=== PATIENT | male | born 1980 | race Caucasian/White ===

== ENCOUNTER 2021-02-19 16:17 | Inpatient (IN) | payer OTHER ==
[~2021-02-19] VITALS: Ht 170.2 cm; Wt 160.5 kg
[2021-02-19] MEDS ORDERED: ACETAMINOPHEN 325 MG TABLET ONE (16:57)
[2021-02-19] MEDS ORDERED: ACETAMINOPHEN 325 MG TABLET PO ONE (17:00)
[2021-02-19 17:11] LABS: MEAN CORPUSCULAR HEMOGLOBIN 28.3 pg (27.5-34.5); MEAN CORPUSCULAR HGB CONC 33.1 g/dL (33.2-36.2); MEAN PLATELET VOLUME 8.3 fL (7.4-10.4); PLATELET COUNT 269 x10^3/uL (130-400); RED BLOOD COUNT 5.06 x10^6/uL (4.38-5.82); RED CELL DISTRIBUTION WIDTH 13.9 % (9.4-14.8)
[2021-02-19] MEDS ORDERED: MULT-658 PO (17:20)
[2021-02-19] MEDS ORDERED: CART1TAB5 PO (17:21)
[2021-02-19 17:22] LABS: ALANINE AMINOTRANSFERASE 51 U/L (12-78); ALBUMIN 2.8 g/dL (3.4-5.0); ANION GAP 9 mmol/L (5-15); CALCIUM 9.2 mg/dL (8.5-10.1); CHLORIDE 94 mmol/L (98-107); CREATININE 1.22 mg/dL (0.7-1.3)
[2021-02-19 17:28] LABS: ALKALINE PHOSPHATASE 106 U/L (45-117); BILIRUBIN,TOTAL 0.6 mg/dL (0.2-1.0); TOTAL PROTEIN 7.5 g/dL (6.4-8.2)
--- NOTE | 2021-02-19 17:29 | NUR ---
ASSUMED CARE OF PATIENT IN ROOM 41. RT CALLED. RT PLACED PATIENT ON HIGH FLOW NASAL CANNULA DUE TO VERY LOW SPO2 SATS IN TRIAGE. PIV STARTED AND BLOOD DRAWN. APPLIED CONTINUOUS SPO2 AND CARDIAC MONITORS. PT IS IN SINUS TACHYCARDIA AT A RATE OF 119-123 BPM WITH NO ECTOPY. PT IS ALERT AND ORIENTED AND IS CALM AND COOPERATIVE. PATIENT STATES THAT HE TESTED POSITIVE FOR COVID ON 02/17 AND SELF-QUARENTINING AT HOME BUT CAME IN TODAY BECAUSE HE WASN'T GETTING BETTER. SPO2 83-85% ON HIGH FLOW NASAL CANNULA. DR. NEWBERRY IN PATIENT'S ROOM AND NOTIFIED HIM THAT HE WILL BE ADMITTED TO THE HOSPITAL. PT AGREES TO PLAN.
[2021-02-19] MEDS ORDERED: CEFTRIAXONE PMX 1GM/50ML 50 ML IV ONE (17:30)
[2021-02-19] MEDS ORDERED: CEFTRIAXONE PMX 1GM/50ML 50 ML ONE (17:35)
[2021-02-19 17:39] LABS: C-REACTIVE PROTEIN, QUANT > 19.00 mg/dL (0.02-0.49)
[2021-02-19 17:46] LABS: MD YES
[2021-02-19 17:52] LABS: BAND#(MANUAL) 2.77 x10^3/uL; BANDS%(MANUAL) 36 % (0-7); LYMPH#(MANUAL) 0.54 x10^3/uL (1-3.4); LYMPHS% (MANUAL) 7 % (22-44); MONOS#(MANUAL) 0.23 x10^3/uL (0.3-2.7); MONOS% (MANUAL) 3 % (2-9); SEG#(MANUAL) 4.16 x10^3/uL (1.8-6.8); SEGS% (MANUAL) 54 % (42-75)
--- NOTE | 2021-02-19 17:52 | NUR ---
IV ROCEPHIN AND NS BOLUS STARTED.
[2021-02-19 17:53] LABS: <PLATELET ESTIMATE> ADEQUATE; <PLT MORPHOLOGY> NORMAL PLT MORPH; <RBC MORPHOLOGY> NORMAL
[2021-02-19] MEDS ORDERED: INSULIN SINGLE DOSE, ER ONE ×2 (17:55→17:57)
[2021-02-19] MEDS ORDERED: INSULIN REGULAR 100 UNITS/ML, 3ML VIAL SQ-INSULIN ONE (18:00)
[2021-02-19] MEDS ORDERED: SODIUM CHLORIDE 0.9%, 500ML IVBOLUS ONE (18:00)
[2021-02-19] MEDS ORDERED: DEXAMETHASONE 4 MG/ML, 1ML IVPush ONE (18:30)
[2021-02-19] MEDS ORDERED: DEXAMETHASONE 4 MG/ML, 5ML ONE (18:42)
[2021-02-19] MEDS ORDERED: POLYETHYLENE GLYCOL 17 GM PACKET PO PRN (19:00)
[2021-02-19] MEDS ORDERED: BISACODYL 10 MG SUPP PR PRN (19:00)
[2021-02-19] MEDS ORDERED: ONDANSETRON 2MG/ML, 2ML IVPush PRN (19:00)
--- NOTE | 2021-02-19 19:00 | NUR ---
BEDSIDE REPORT FROM DOREEN RN, PT TO GO UPSTAIRS. DOREEN TO GIVE REPORT TO CCU RN.
--- NOTE | 2021-02-19 19:04 | NUR ---
SBAR TELEPHONE HAND-OFF REPORT GIVEN TO [place]OO[place]S IN CCU.
[2021-02-19 19:51] VITALS: BP 120/52
[2021-02-19] MEDS: HEPARIN 5,000 UNITS/ML, 1ML SQ SCH (20:24)
[2021-02-19] MEDS: AZITHROMYCIN 500 MG in SODIUM CHLORIDE 0.9% 250 ML IV SCH (20:24)
[2021-02-19] MEDS: ASCORBIC ACID 500 MG TABLET PO SCH (20:24)
[2021-02-19] MEDS: SODIUM CHLORIDE 0.9% 1,000 ML IV SCH (20:25)
[2021-02-19] MEDS: INSULIN LISPRO 100 UNITS/ML, PEN SQ-INSULIN SCH (20:38)
[2021-02-19] MEDS ORDERED: INSULIN GLARGINE 100 UNITS/ML, PEN SQ-INSULIN ONE (21:00)
[2021-02-19] MEDS: FAMOTIDINE 20 MG/2 ML IVPush SCH (22:09)
[2021-02-20] MEDS: INSULIN LISPRO 100 UNITS/ML, PEN SQ-INSULIN SCH ×7 (00:27→20:17)
[2021-02-20] MEDS: SODIUM CHLORIDE 0.9% 1,000 ML IV SCH ×2 (01:40→03:50)
[2021-02-20] MEDS: HEPARIN 5,000 UNITS/ML, 1ML SQ SCH (03:42)
[2021-02-20 04:00] VITALS: BP 118/59
[2021-02-20] MEDS ORDERED: INSULIN GLARGINE 100 UNITS/ML, PEN SQ-INSULIN ONE (04:30)
[2021-02-20 04:31] LABS: MEAN CORPUSCULAR HEMOGLOBIN 28.6 pg (27.5-34.5); MEAN CORPUSCULAR HGB CONC 33.1 g/dL (33.2-36.2); MEAN PLATELET VOLUME 8.3 fL (7.4-10.4); PLATELET COUNT 267 x10^3/uL (130-400); RED BLOOD COUNT 4.84 x10^6/uL (4.38-5.82)
[2021-02-20 04:43] LABS: ALANINE AMINOTRANSFERASE 53 U/L (12-78); ALBUMIN 2.6 g/dL (3.4-5.0); ANION GAP 7 mmol/L (5-15); CALCIUM 8.8 mg/dL (8.5-10.1); CHLORIDE 103 mmol/L (98-107); CREATININE 1.08 mg/dL (0.7-1.3)
[2021-02-20 04:45] LABS: ALKALINE PHOSPHATASE 98 U/L (45-117); BILIRUBIN,TOTAL 0.4 mg/dL (0.2-1.0); TOTAL PROTEIN 7.3 g/dL (6.4-8.2)
[2021-02-20 05:16] LABS: MD YES
[2021-02-20 05:21] LABS: <RBC MORPHOLOGY> NORMAL; BAND#(MANUAL) 0.66 x10^3/uL; BANDS%(MANUAL) 9 % (0-7); LYMPHS% (MANUAL) 11 % (22-44); MYELOCYTES# (MANUAL) 0.07 x10^3/uL (0-0); MYELOCYTES% (MANUAL) 1 % (0-0); SEG#(MANUAL) 5.77 x10^3/uL (1.8-6.8); SEGS% (MANUAL) 79 % (42-75)
[2021-02-20 05:22] LABS: <PLATELET ESTIMATE> ADEQUATE; <PLT MORPHOLOGY> NORMAL PLT MORPH
[2021-02-20 07:08] LABS: D-DIMER 1.29 ug/mlFEU (0.00-0.52)
[2021-02-20 07:13] LABS: FIBRINOGEN > 713 mg/dL (200-340)
[2021-02-20] MEDS ORDERED: REMDESIVIR 200 MG in SODIUM CHLORIDE 0.9% 250 ML IVPB ONE (07:30)
[2021-02-20] MEDS ORDERED: HEPARIN 5,000 UNITS/ML, 1ML IV ONE (07:30)
[2021-02-20] MEDS: FUROSEMIDE 40 MG/4 ML IV SCH ×2 (07:58→17:23)
[2021-02-20] MEDS ORDERED: TOCILIZUMAB 800 MG in SODIUM CHLORIDE 0.9% 60 ML IVPB ONE (09:30)
[2021-02-20] MEDS: ACETAMINOPHEN 325 MG TABLET PO PRN (10:08)
[2021-02-20] MEDS: INSULIN GLARGINE 100 UNITS/ML, PEN SQ-INSULIN SCH ×2 (10:15→20:20)
[2021-02-20] MEDS: FAMOTIDINE 20 MG/2 ML IVPush SCH ×2 (10:40→20:14)
[2021-02-20] MEDS: SENNA/DOCUSATE TABLET PO SCH (10:40)
[2021-02-20] MEDS: THIAMINE 100MG TABLET PO SCH (10:41)
[2021-02-20] MEDS: CHOLECALCIFEROL 5,000u TAB PO SCH (10:41)
[2021-02-20] MEDS: ZINC SULFATE 220 MG CAPSULE PO SCH (10:41)
[2021-02-20] MEDS: ASCORBIC ACID 500 MG TABLET PO SCH ×2 (10:41→20:14)
[2021-02-20] MEDS: DEXAMETHASONE 4 MG/ML, 1ML IVPush SCH (17:23)
[2021-02-20] MEDS: CEFTRIAXONE PMX 1GM/50ML 50 ML IV SCH (17:23)
[2021-02-20] MEDS: AZITHROMYCIN 500 MG in SODIUM CHLORIDE 0.9% 250 ML IV SCH (18:42)
[2021-02-20] MEDS: GUAIFENESIN/DM 200-20MG, 10ML UDC PO PRN (20:15)
[2021-02-20] MEDS: HEPARIN 5,000 UNITS/ML, 1ML IV PRN (20:54)
[2021-02-21] MEDS: HEPARIN 25,000 UNITS/250ML PMX 250 ML IV PRN (01:01)
[2021-02-21] MEDS: INSULIN LISPRO 100 UNITS/ML, PEN SQ-INSULIN SCH ×6 (01:05→21:00)
[2021-02-21 03:42] LABS: BASOPHILS % (AUTO) 1 % (0-1); EOSINOPHILS % (AUTO) 0 % (1-7); LYMPHOCYTES % (AUTO) 11 % (22-44); MEAN CORPUSCULAR HGB CONC 32.8 g/dL (33.2-36.2); MEAN PLATELET VOLUME 7.9 fL (7.4-10.4); MONOCYTES % (AUTO) 2 % (2-9); NEUTROPHILS % (AUTO) 86 % (42-75); PLATELET COUNT 303 x10^3/uL (130-400); RED BLOOD COUNT 4.67 x10^6/uL (4.38-5.82); RED CELL DISTRIBUTION WIDTH 14.5 % (9.4-14.8)
[2021-02-21 03:50] LABS: ALANINE AMINOTRANSFERASE 53 U/L (12-78); ALBUMIN 2.2 g/dL (3.4-5.0); ANION GAP 7 mmol/L (5-15); CALCIUM 8.5 mg/dL (8.5-10.1); CHLORIDE 104 mmol/L (98-107)
[2021-02-21 03:52] LABS: ALKALINE PHOSPHATASE 87 U/L (45-117); BILIRUBIN,TOTAL 0.2 mg/dL (0.2-1.0); MD NO; TOTAL PROTEIN 6.7 g/dL (6.4-8.2)
[2021-02-21 04:00] VITALS: BP 106/58
[2021-02-21] MEDS: HEPARIN 5,000 UNITS/ML, 1ML IV PRN (04:18)
[2021-02-21] MEDS: ASCORBIC ACID 500 MG TABLET PO SCH ×2 (07:53→20:49)
[2021-02-21] MEDS: FUROSEMIDE 40 MG/4 ML IV SCH ×2 (07:53→16:54)
[2021-02-21] MEDS: THIAMINE 100MG TABLET PO SCH (07:54)
[2021-02-21] MEDS: ZINC SULFATE 220 MG CAPSULE PO SCH (07:54)
[2021-02-21] MEDS: FAMOTIDINE 20 MG/2 ML IVPush SCH ×2 (07:55→20:49)
[2021-02-21] MEDS: SENNA/DOCUSATE TABLET PO SCH (07:55)
[2021-02-21] MEDS: CHOLECALCIFEROL 5,000u TAB PO SCH (07:55)
[2021-02-21] MEDS: DEXAMETHASONE 4 MG/ML, 1ML IVPush SCH (07:55)
[2021-02-21] MEDS: GUAIFENESIN/DM 200-20MG, 10ML UDC PO PRN (07:56)
[2021-02-21] MEDS: REMDESIVIR 100 MG in SODIUM CHLORIDE 0.9% 250 ML IVPB SCH (10:22)
[2021-02-21] MEDS: INSULIN GLARGINE 100 UNITS/ML, PEN SQ-INSULIN SCH ×2 (10:22→21:02)
[2021-02-21] MEDS: CEFTRIAXONE PMX 1GM/50ML 50 ML IV SCH (16:54)
[2021-02-21] MEDS: AZITHROMYCIN 500 MG in SODIUM CHLORIDE 0.9% 250 ML IV SCH (18:43)
[2021-02-21] MEDS: ACETAMINOPHEN 325 MG TABLET PO PRN (20:49)
[2021-02-22] MEDS: INSULIN LISPRO 100 UNITS/ML, PEN SQ-INSULIN SCH ×6 (00:38→20:49)
[2021-02-22 04:52] LABS: ALBUMIN 2.2 g/dL (3.4-5.0); ANION GAP 6 mmol/L (5-15); CALCIUM 8.3 mg/dL (8.5-10.1); CHLORIDE 105 mmol/L (98-107)
[2021-02-22 04:58] LABS: ALANINE AMINOTRANSFERASE 55 U/L (12-78); ALKALINE PHOSPHATASE 87 U/L (45-117); BILIRUBIN,TOTAL 0.2 mg/dL (0.2-1.0); CREATININE 0.81 mg/dL (0.7-1.3); TOTAL PROTEIN 6.4 g/dL (6.4-8.2)
[2021-02-22] MEDS: HEPARIN 25,000 UNITS/250ML PMX 250 ML IV PRN (06:45)
[2021-02-22] MEDS: FUROSEMIDE 40 MG/4 ML IV SCH ×2 (07:08→17:15)
[2021-02-22] MEDS: SENNA/DOCUSATE TABLET PO SCH (07:42)
[2021-02-22] MEDS: ASCORBIC ACID 500 MG TABLET PO SCH ×2 (08:32→20:47)
[2021-02-22] MEDS: THIAMINE 100MG TABLET PO SCH (08:32)
[2021-02-22] MEDS: CHOLECALCIFEROL 5,000u TAB PO SCH (08:32)
[2021-02-22] MEDS: DEXAMETHASONE 4 MG/ML, 1ML IVPush SCH (08:32)
[2021-02-22] MEDS: FAMOTIDINE 20 MG/2 ML IVPush SCH ×2 (08:32→20:47)
[2021-02-22] MEDS: ZINC SULFATE 220 MG CAPSULE PO SCH (08:32)
[2021-02-22] MEDS: INSULIN GLARGINE 100 UNITS/ML, PEN SQ-INSULIN SCH ×2 (08:44→20:48)
[2021-02-22] MEDS: REMDESIVIR 100 MG in SODIUM CHLORIDE 0.9% 250 ML IVPB SCH (10:13)
[2021-02-22] MEDS ORDERED: HEPARIN 5,000 UNITS/ML, 1ML IV PRN (10:32)
[2021-02-22] MEDS ORDERED: HEPARIN 25,000 UNITS/250ML PMX 250 ML IV PRN (11:00)
[2021-02-22] MEDS: RIVAROXABAN 20 MG TABLET PO SCH ×2 (12:00→12:27)
[2021-02-22] MEDS: ACETAMINOPHEN 325 MG TABLET PO PRN (12:13)
[2021-02-22] MEDS: CEFTRIAXONE PMX 1GM/50ML 50 ML IV SCH (17:14)
[2021-02-22] MEDS: AZITHROMYCIN 500 MG in SODIUM CHLORIDE 0.9% 250 ML IV SCH (18:30)
[2021-02-23] MEDS: INSULIN LISPRO 100 UNITS/ML, PEN SQ-INSULIN SCH ×6 (01:09→20:58)
[2021-02-23 04:31] LABS: ALANINE AMINOTRANSFERASE 48 U/L (12-78); ALBUMIN 2.3 g/dL (3.4-5.0); ANION GAP 5 mmol/L (5-15); CALCIUM 8.2 mg/dL (8.5-10.1); CHLORIDE 106 mmol/L (98-107); CREATININE 0.72 mg/dL (0.7-1.3)
[2021-02-23 04:33] LABS: ALKALINE PHOSPHATASE 91 U/L (45-117); BILIRUBIN,TOTAL 0.3 mg/dL (0.2-1.0); TOTAL PROTEIN 6.3 g/dL (6.4-8.2)
[2021-02-23] MEDS: SENNA/DOCUSATE TABLET PO SCH (08:08)
[2021-02-23] MEDS: DEXAMETHASONE 4 MG/ML, 1ML IVPush SCH (08:22)
[2021-02-23] MEDS: THIAMINE 100MG TABLET PO SCH (08:23)
[2021-02-23] MEDS: FAMOTIDINE 20 MG/2 ML IVPush SCH ×2 (08:23→20:58)
[2021-02-23] MEDS: FUROSEMIDE 40 MG/4 ML IV SCH ×2 (08:23→16:59)
[2021-02-23] MEDS: POTASSIUM CHLORIDE 20 MEQ TAB.ER.PRT PO SCH ×2 (08:23→16:59)
[2021-02-23] MEDS: CHOLECALCIFEROL 5,000u TAB PO SCH (08:23)
[2021-02-23] MEDS: ZINC SULFATE 220 MG CAPSULE PO SCH (08:23)
[2021-02-23] MEDS: ASCORBIC ACID 500 MG TABLET PO SCH ×2 (08:23→20:58)
[2021-02-23] MEDS: INSULIN GLARGINE 100 UNITS/ML, PEN SQ-INSULIN SCH ×2 (08:26→20:58)
[2021-02-23] MEDS: REMDESIVIR 100 MG in SODIUM CHLORIDE 0.9% 250 ML IVPB SCH (10:31)
[2021-02-23] MEDS: RIVAROXABAN 20 MG TABLET PO SCH (12:37)
[2021-02-23] MEDS: CEFTRIAXONE PMX 1GM/50ML 50 ML IV SCH (17:00)
[2021-02-23] MEDS: AZITHROMYCIN 500 MG in SODIUM CHLORIDE 0.9% 250 ML IV SCH (18:28)
[2021-02-24] MEDS: INSULIN LISPRO 100 UNITS/ML, PEN SQ-INSULIN SCH ×6 (01:00→20:01)
[2021-02-24 04:25] LABS: BASOPHILS % (AUTO) 1 % (0-1); EOSINOPHILS % (AUTO) 1 % (1-7); LYMPHOCYTES % (AUTO) 25 % (22-44); MEAN CORPUSCULAR HGB CONC 33.1 g/dL (33.2-36.2); MEAN PLATELET VOLUME 7.4 fL (7.4-10.4); MONOCYTES % (AUTO) 8 % (2-9); NEUTROPHILS % (AUTO) 65 % (42-75); PLATELET COUNT 325 x10^3/uL (130-400); RED BLOOD COUNT 4.89 x10^6/uL (4.38-5.82); RED CELL DISTRIBUTION WIDTH 14.3 % (9.4-14.8)
[2021-02-24 04:39] LABS: ALBUMIN 2.5 g/dL (3.4-5.0); CALCIUM 8.1 mg/dL (8.5-10.1); CHLORIDE 108 mmol/L (98-107)
[2021-02-24 04:42] LABS: CREATININE 0.72 mg/dL (0.7-1.3)
[2021-02-24 04:43] LABS: ALANINE AMINOTRANSFERASE 45 U/L (12-78); ALKALINE PHOSPHATASE 84 U/L (45-117); BILIRUBIN,TOTAL 0.4 mg/dL (0.2-1.0); TOTAL PROTEIN 6.2 g/dL (6.4-8.2)
[2021-02-24 04:51] LABS: ANION GAP 6 mmol/L (5-15)
[2021-02-24 05:40] LABS: MD SCAN
[2021-02-24] MEDS: FUROSEMIDE 40 MG/4 ML IV SCH ×2 (08:43→17:10)
[2021-02-24] MEDS: THIAMINE 100MG TABLET PO SCH (08:43)
[2021-02-24] MEDS: ZINC SULFATE 220 MG CAPSULE PO SCH (08:43)
[2021-02-24] MEDS: DEXAMETHASONE 4 MG/ML, 1ML IVPush SCH (08:43)
[2021-02-24] MEDS: FAMOTIDINE 20 MG/2 ML IVPush SCH ×2 (08:43→19:48)
[2021-02-24] MEDS: CHOLECALCIFEROL 5,000u TAB PO SCH (08:43)
[2021-02-24] MEDS: ASCORBIC ACID 500 MG TABLET PO SCH ×2 (08:44→19:48)
[2021-02-24] MEDS: SENNA/DOCUSATE TABLET PO SCH (08:44)
[2021-02-24] MEDS: INSULIN GLARGINE 100 UNITS/ML, PEN SQ-INSULIN SCH ×2 (09:16→20:01)
[2021-02-24] MEDS: REMDESIVIR 100 MG in SODIUM CHLORIDE 0.9% 250 ML IVPB SCH (11:06)
[2021-02-24] MEDS: RIVAROXABAN 20 MG TABLET PO SCH (12:23)
[2021-02-24] MEDS: CEFTRIAXONE PMX 1GM/50ML 50 ML IV SCH (17:10)
[2021-02-24] MEDS: AZITHROMYCIN 500 MG in SODIUM CHLORIDE 0.9% 250 ML IV SCH (18:08)
[2021-02-25 03:10] VITALS: BP 112/72
[2021-02-25] MEDS: INSULIN LISPRO 100 UNITS/ML, PEN SQ-INSULIN SCH ×4 (07:00→20:08)
[2021-02-25 07:10] LABS: ANION GAP 4 mmol/L (5-15); CALCIUM 8.4 mg/dL (8.5-10.1); CHLORIDE 108 mmol/L (98-107); CREATININE 0.76 mg/dL (0.7-1.3)
[2021-02-25] MEDS: POTASSIUM CHLORIDE 20 MEQ TAB.ER.PRT PO SCH ×2 (08:53→16:57)
[2021-02-25] MEDS: ASCORBIC ACID 500 MG TABLET PO SCH ×2 (08:53→20:03)
[2021-02-25] MEDS: THIAMINE 100MG TABLET PO SCH (08:54)
[2021-02-25] MEDS: CHOLECALCIFEROL 5,000u TAB PO SCH (08:54)
[2021-02-25] MEDS: SENNA/DOCUSATE TABLET PO SCH (08:54)
[2021-02-25] MEDS: ZINC SULFATE 220 MG CAPSULE PO SCH (08:55)
[2021-02-25] MEDS: DEXAMETHASONE 4 MG/ML, 1ML IVPush SCH (08:56)
[2021-02-25] MEDS: FAMOTIDINE 20 MG/2 ML IVPush SCH (08:56)
[2021-02-25] MEDS: FUROSEMIDE 40 MG/4 ML IV SCH ×2 (08:57→16:56)
[2021-02-25] MEDS: INSULIN GLARGINE 100 UNITS/ML, PEN SQ-INSULIN SCH ×2 (08:58→20:08)
[2021-02-25] MEDS: RIVAROXABAN 20 MG TABLET PO SCH (12:07)
[2021-02-25] MEDS: CEFTRIAXONE PMX 1GM/50ML 50 ML IV SCH (16:57)
[2021-02-25] MEDS: FAMOTIDINE 20 MG TABLET PO SCH (20:03)
[2021-02-26 06:10] LABS: ANION GAP 5 mmol/L (5-15); CALCIUM 8.7 mg/dL (8.5-10.1); CHLORIDE 107 mmol/L (98-107); CREATININE 0.72 mg/dL (0.7-1.3)
[2021-02-26] MEDS: INSULIN LISPRO 100 UNITS/ML, PEN SQ-INSULIN SCH ×4 (07:00→21:22)
[2021-02-26] MEDS: ASCORBIC ACID 500 MG TABLET PO SCH ×2 (08:44→20:00)
[2021-02-26] MEDS: ZINC SULFATE 220 MG CAPSULE PO SCH (08:45)
[2021-02-26] MEDS: THIAMINE 100MG TABLET PO SCH (08:45)
[2021-02-26] MEDS: CHOLECALCIFEROL 5,000u TAB PO SCH (08:45)
[2021-02-26] MEDS: SENNA/DOCUSATE TABLET PO SCH (08:45)
[2021-02-26] MEDS: FAMOTIDINE 20 MG TABLET PO SCH ×2 (08:45→20:00)
[2021-02-26] MEDS: DEXAMETHASONE 4 MG/ML, 1ML IVPush SCH (08:46)
[2021-02-26] MEDS: FUROSEMIDE 40 MG/4 ML IV SCH ×2 (08:46→16:05)
[2021-02-26] MEDS: INSULIN GLARGINE 100 UNITS/ML, PEN SQ-INSULIN SCH ×2 (08:48→21:22)
[2021-02-26] MEDS: RIVAROXABAN 20 MG TABLET PO SCH (12:33)
[2021-02-26] MEDS: CEFTRIAXONE PMX 1GM/50ML 50 ML IV SCH (16:05)
[2021-02-27 04:56] LABS: ANION GAP 7 mmol/L (5-15); CHLORIDE 106 mmol/L (98-107); CREATININE 0.78 mg/dL (0.7-1.3)
[2021-02-27] MEDS: FUROSEMIDE 40 MG/4 ML IV SCH ×2 (07:36→17:25)
[2021-02-27] MEDS: INSULIN LISPRO 100 UNITS/ML, PEN SQ-INSULIN SCH ×4 (07:49→22:36)
[2021-02-27] MEDS: THIAMINE 100MG TABLET PO SCH (08:19)
[2021-02-27] MEDS: ASCORBIC ACID 500 MG TABLET PO SCH ×2 (08:19→22:35)
[2021-02-27] MEDS: FAMOTIDINE 20 MG TABLET PO SCH ×2 (08:19→17:27)
[2021-02-27] MEDS: CHOLECALCIFEROL 5,000u TAB PO SCH (08:19)
[2021-02-27] MEDS: SENNA/DOCUSATE TABLET PO SCH (08:19)
[2021-02-27] MEDS: ZINC SULFATE 220 MG CAPSULE PO SCH (08:19)
[2021-02-27] MEDS: DEXAMETHASONE 4 MG/ML, 1ML IVPush SCH (08:19)
[2021-02-27] MEDS: INSULIN GLARGINE 100 UNITS/ML, PEN SQ-INSULIN SCH ×2 (08:20→22:36)
[2021-02-27] MEDS: RIVAROXABAN 20 MG TABLET PO SCH (12:19)
[2021-02-27 20:05] VITALS: BP 138/94
[2021-02-28 01:30] VITALS: BP 122/81
[2021-02-28 05:32] LABS: ANION GAP 6 mmol/L (5-15); CALCIUM 8.8 mg/dL (8.5-10.1); CHLORIDE 105 mmol/L (98-107)
[2021-02-28 05:34] LABS: CREATININE 0.84 mg/dL (0.7-1.3)
[2021-02-28] MEDS: INSULIN LISPRO 100 UNITS/ML, PEN SQ-INSULIN SCH ×4 (07:00→20:58)
[2021-02-28 08:01] VITALS: BP 127/92
[2021-02-28] MEDS: ZINC SULFATE 220 MG CAPSULE PO SCH (10:41)
[2021-02-28] MEDS: ASCORBIC ACID 500 MG TABLET PO SCH ×2 (10:41→20:48)
[2021-02-28] MEDS: FAMOTIDINE 20 MG TABLET PO SCH ×2 (10:41→20:52)
[2021-02-28] MEDS: CHOLECALCIFEROL 5,000u TAB PO SCH (10:41)
[2021-02-28] MEDS: SENNA/DOCUSATE TABLET PO SCH (10:41)
[2021-02-28] MEDS: THIAMINE 100MG TABLET PO SCH (10:41)
[2021-02-28] MEDS: FUROSEMIDE 40 MG/4 ML IV SCH (10:41)
[2021-02-28] MEDS: DEXAMETHASONE 4 MG/ML, 1ML IVPush SCH (10:42)
[2021-02-28] MEDS: INSULIN GLARGINE 100 UNITS/ML, PEN SQ-INSULIN SCH ×2 (10:43→20:58)
[2021-02-28] MEDS: RIVAROXABAN 20 MG TABLET PO SCH (13:04)
[2021-02-28 13:05] VITALS: BP 115/83
[2021-02-28] MEDS ORDERED: OMNIPAQUE 350 MG/ML, 100ML BOTTLE ONE (15:43)
[2021-02-28 19:32] VITALS: BP 107/70
[2021-03-01 00:29] VITALS: BP 125/79
[2021-03-01] MEDS ORDERED: NAPHAZOLINE/PHENIRAMINE OPHTH EACHEYE PRN (00:30)
[2021-03-01 05:56] LABS: BASOPHILS % (AUTO) 1 % (0-1); EOSINOPHILS % (AUTO) 2 % (1-7); LYMPHOCYTES % (AUTO) 40 % (22-44); MEAN CORPUSCULAR HEMOGLOBIN 27.5 pg (27.5-34.5); MEAN CORPUSCULAR HGB CONC 32.5 g/dL (33.2-36.2); MEAN PLATELET VOLUME 8.1 fL (7.4-10.4); MONOCYTES % (AUTO) 9 % (2-9); NEUTROPHILS % (AUTO) 48 % (42-75); PLATELET COUNT 293 x10^3/uL (130-400)
[2021-03-01 06:06] LABS: MD NO
[2021-03-01 06:07] LABS: ALBUMIN 3.2 g/dL (3.4-5.0); ANION GAP 5 mmol/L (5-15); CALCIUM 9.1 mg/dL (8.5-10.1); CHLORIDE 106 mmol/L (98-107)
[2021-03-01 06:10] LABS: ALANINE AMINOTRANSFERASE 65 U/L (12-78); ALKALINE PHOSPHATASE 72 U/L (45-117); BILIRUBIN,TOTAL 0.7 mg/dL (0.2-1.0); TOTAL PROTEIN 6.4 g/dL (6.4-8.2)
[2021-03-01 06:49] LABS: D-DIMER 1.98 ug/mlFEU (0.00-0.52)
[2021-03-01 07:00] VITALS: BP 118/80
[2021-03-01] MEDS: INSULIN LISPRO 100 UNITS/ML, PEN SQ-INSULIN SCH ×4 (07:00→20:51)
[2021-03-01] MEDS: THIAMINE 100MG TABLET PO SCH (08:25)
[2021-03-01] MEDS: DEXAMETHASONE 4 MG/ML, 1ML IVPush SCH (08:25)
[2021-03-01] MEDS: FAMOTIDINE 20 MG TABLET PO SCH ×2 (08:25→20:49)
[2021-03-01] MEDS: FUROSEMIDE 40 MG/4 ML IV SCH (08:25)
[2021-03-01] MEDS: SENNA/DOCUSATE TABLET PO SCH (08:26)
[2021-03-01] MEDS: ASCORBIC ACID 500 MG TABLET PO SCH ×2 (08:26→20:50)
[2021-03-01] MEDS: INSULIN GLARGINE 100 UNITS/ML, PEN SQ-INSULIN SCH ×2 (08:27→20:50)
[2021-03-01] MEDS ORDERED: ZINC SULFATE 220 MG CAPSULE PO SCH (09:00)
[2021-03-01] MEDS ORDERED: CHOLECALCIFEROL 5,000u TAB PO SCH (09:00)
[2021-03-01] MEDS: RIVAROXABAN 20 MG TABLET PO SCH (11:35)
[2021-03-01 14:15] VITALS: BP 124/77
[2021-03-01 19:00] VITALS: BP 125/80
[2021-03-02 00:17] VITALS: BP 100/67
[2021-03-02 06:01] LABS: D-DIMER 2.02 ug/mlFEU (0.00-0.52)
[2021-03-02 06:02] LABS: CHLORIDE 106 mmol/L (98-107)
[2021-03-02 06:03] LABS: ANION GAP 5 mmol/L (5-15); CALCIUM 8.7 mg/dL (8.5-10.1); CREATININE 0.77 mg/dL (0.7-1.3)
[2021-03-02] MEDS: INSULIN LISPRO 100 UNITS/ML, PEN SQ-INSULIN SCH ×4 (07:00→20:50)
[2021-03-02] MEDS: SENNA/DOCUSATE TABLET PO SCH (08:45)
[2021-03-02] MEDS: FAMOTIDINE 20 MG TABLET PO SCH ×2 (08:45→20:43)
[2021-03-02] MEDS: FUROSEMIDE 40 MG/4 ML IV SCH (08:46)
[2021-03-02] MEDS: INSULIN GLARGINE 100 UNITS/ML, PEN SQ-INSULIN SCH ×2 (08:47→20:50)
[2021-03-02 09:03] VITALS: BP 118/79
[2021-03-02] MEDS: RIVAROXABAN 20 MG TABLET PO SCH (11:10)
[2021-03-02 13:26] VITALS: BP 111/75
[2021-03-02 19:01] VITALS: BP 118/79
[2021-03-03 00:41] VITALS: BP 111/70
[2021-03-03 05:24] LABS: BASOPHILS % (AUTO) 1 % (0-1); EOSINOPHILS % (AUTO) 1 % (1-7); LYMPHOCYTES % (AUTO) 47 % (22-44); MEAN CORPUSCULAR HEMOGLOBIN 28.1 pg (27.5-34.5); MEAN CORPUSCULAR HGB CONC 32.9 g/dL (33.2-36.2); MEAN PLATELET VOLUME 8.3 fL (7.4-10.4); MONOCYTES % (AUTO) 7 % (2-9); NEUTROPHILS % (AUTO) 44 % (42-75); PLATELET COUNT 280 x10^3/uL (130-400); RED CELL DISTRIBUTION WIDTH 13.9 % (9.4-14.8)
[2021-03-03 05:30] LABS: MD NO
[2021-03-03 05:34] LABS: CHLORIDE 106 mmol/L (98-107)
[2021-03-03 05:42] LABS: ANION GAP 5 mmol/L (5-15); CALCIUM 8.9 mg/dL (8.5-10.1); CREATININE 0.78 mg/dL (0.7-1.3)
[2021-03-03] MEDS: INSULIN LISPRO 100 UNITS/ML, PEN SQ-INSULIN SCH ×4 (07:00→20:48)
[2021-03-03 07:28] VITALS: BP 118/82
[2021-03-03] MEDS: SENNA/DOCUSATE TABLET PO SCH (08:11)
[2021-03-03] MEDS: FAMOTIDINE 20 MG TABLET PO SCH ×2 (08:11→20:44)
[2021-03-03] MEDS: FUROSEMIDE 40 MG/4 ML IV SCH (08:11)
[2021-03-03] MEDS: INSULIN GLARGINE 100 UNITS/ML, PEN SQ-INSULIN SCH ×2 (08:13→20:49)
[2021-03-03] MEDS: RIVAROXABAN 20 MG TABLET PO SCH (11:01)
[2021-03-03 12:38] VITALS: BP 116/85
[2021-03-03] MEDS: metFORMIN 500 MG TABLET PO SCH (16:20)
[2021-03-03 18:54] VITALS: BP 144/80
[2021-03-04 00:33] VITALS: BP 125/74
[2021-03-04] MEDS: INSULIN LISPRO 100 UNITS/ML, PEN SQ-INSULIN SCH ×4 (07:00→21:13)
[2021-03-04 07:17] VITALS: BP 109/71
[2021-03-04] MEDS: FAMOTIDINE 20 MG TABLET PO SCH ×2 (07:30→21:14)
[2021-03-04] MEDS: metFORMIN 500 MG TABLET PO SCH ×2 (07:30→16:00)
[2021-03-04] MEDS: INSULIN GLARGINE 100 UNITS/ML, PEN SQ-INSULIN SCH ×2 (07:31→21:14)
[2021-03-04] MEDS: FUROSEMIDE 40 MG/4 ML IV SCH (07:31)
[2021-03-04] MEDS: SENNA/DOCUSATE TABLET PO SCH (07:31)
[2021-03-04] MEDS: RIVAROXABAN 20 MG TABLET PO SCH (11:05)
[2021-03-04 14:20] VITALS: BP 110/70
[2021-03-04 19:48] VITALS: BP 122/82
[2021-03-05 00:30] VITALS: BP 106/71
[2021-03-05 06:59] VITALS: BP 123/77
[2021-03-05] MEDS: INSULIN LISPRO 100 UNITS/ML, PEN SQ-INSULIN SCH ×2 (07:00→11:33)
[2021-03-05] MEDS ORDERED: FUROSEMIDE 40 MG TABLET PO SCH (09:00)
[2021-03-05] MEDS: SENNA/DOCUSATE TABLET PO SCH (09:17)
[2021-03-05] MEDS: metFORMIN 500 MG TABLET PO SCH (09:17)
[2021-03-05] MEDS: FAMOTIDINE 20 MG TABLET PO SCH (09:17)
[2021-03-05] MEDS: INSULIN GLARGINE 100 UNITS/ML, PEN SQ-INSULIN SCH (10:14)
[2021-03-05] MEDS ORDERED: PRED20TA PO (10:27)
[2021-03-05] MEDS ORDERED: METF500T PO (10:27)
[2021-03-05] MEDS ORDERED: ASPI-1026 PO (10:38)
[2021-03-05] MEDS: RIVAROXABAN 20 MG TABLET PO SCH (11:33)
== END 2021-03-05 12:22 | disposition home or self-care (01) | DRG 871 ==
LOC: ED 18:22 → EDIP 18:44 → CCU 19:42 → 3N 02-27 20:00
PROVIDERS: ADMIT Internal Medicine; ATTEND Hospitalist
PROC: 5A09557 Assistance with Respiratory Ventilation, Greater than 96 Consecutive Hours, Continuous Positive Airway Pressure (ICD-10-PCS; principal; 2021-02-19)
PROC: 5A0945A Assistance with Respiratory Ventilation, 24-96 Consecutive Hours, High Flow/Velocity Cannula (ICD-10-PCS; 2021-02-25)
DX: A41.89 Other specified sepsis (principal); I50.31 Acute diastolic (congestive) heart failure; J12.82 Pneumonia due to coronavirus disease 2019; J96.01 Acute respiratory failure with hypoxia; U07.1 COVID-19; E87.1 Hypo-osmolality and hyponatremia; Z68.43 Body mass index [BMI] 50.0-59.9, adult; E11.65 Type 2 diabetes mellitus with hyperglycemia; E66.01 Morbid (severe) obesity due to excess calories; E86.0 Dehydration; E87.6 Hypokalemia; E88.09 Other disorders of plasma-protein metabolism, not elsewhere classified; Z79.01 Long term (current) use of anticoagulants; Z79.899 Other long term (current) drug therapy; Z79.891 Long term (current) use of opiate analgesic; Z79.4 Long term (current) use of insulin
CPT/HCPCS: 36415; 36600; 71045; 71275; 80048; 80053; 82728; 82803; 82947; 82962; 83036; 83605; 83615; 84145; 85025; 85379; 85384; 85520; 86140; 87040; 87081; 93005; 93306; 93970; 94660; 96365; 99285; G0378; J0456; J0696; J1100; J1644; J1815; J1940; J2405; J3262; Q9967; J7030; J7040; J7050; J7512; U0003